=== PATIENT | male | born 1980 | race Caucasian/White ===

== ENCOUNTER 2016-05-26 19:13 | Emergency (ER) | payer OTHER ==
[~2016-05-26] VITALS: Ht 175.3 cm; Wt 90.7 kg
[2016-05-26 19:14] VITALS: BP 133/78; PULSE 87; RESP 18; TEMP 98.9; O2SAT 96
--- NOTE | 2016-05-26 19:14 | NUR ---
Patient to ER bed 05 to gown for evaluation. Side rails up. Report given to EILEEN.
--- NOTE | 2016-05-26 19:19 | NUR ---
ER ESTEFANY Singer at bedside examining patient.
--- NOTE | 2016-05-26 19:21 | NUR ---
Patient to ER C/O severe sore throat 10/17 pain and swelling since friday. AAOx4, unlabored rbeathing, no signs of acute distress.
[2016-05-26] MEDS ORDERED: DEXAMETHASONE SOD PHOSPHATE 10 MG/ML VIAL IM ONE (19:30)
[2016-05-26] MEDS ORDERED: cefTRIAXone 2 GM VIAL IM ONE (19:30)
[2016-05-26] MEDS ORDERED: LIDOCAINE 1%, 20 ML MDV 20 ML ONE (19:36)
[2016-05-26 20:16] VITALS: BP 126/79; PULSE 78; RESP 18; TEMP 98.6; O2SAT 98
--- NOTE | 2016-05-26 20:16 | NUR ---
Patient given written and verbal discharge instructions and verbalizes understanding. ER [employer] Lucrecia discussed with patient the results and treatment provided. Patient in stable condition. ID arm band removed. Rx of penicillin, motrin, prednisone given. Patient educated on pain management and to follow up with PMD. Pain Scale 0/10. Opportunity for questions provided and answered.
== END 2016-05-26 23:56 | disposition home or self-care (01) ==
LOC: SED 19:13
DX: J02.0 Streptococcal pharyngitis (principal); R03.0 Elevated blood-pressure reading, without diagnosis of hypertension
CPT/HCPCS: 96372; 99284; J0696; J1100; J2001